=== PATIENT | female | born 1995 | race Caucasian/White ===

== ENCOUNTER 2016-06-23 02:56 | Emergency (ER) | payer OTHER ==
[~2016-06-23] VITALS: Ht 167.6 cm; Wt 70.0 kg
[~2016-06-23 02:56] MED LIST: ZOFR4TAB3 SL
[2016-06-23 02:58] VITALS: BP 130/71; PULSE 103; RESP 16; TEMP 98.7; O2SAT 95
== END 2016-06-23 03:37 | disposition left against medical advice (07) ==
LOC: NED 02:56
DX: S99.921A Unspecified injury of right foot, initial encounter (principal); X58.XXXA Exposure to other specified factors, initial encounter
CPT/HCPCS: 99281

== ENCOUNTER 2017-03-16 01:50 | Emergency (ER) | payer OTHER ==
[~2017-03-16] VITALS: Ht 162.6 cm; Wt 58.0 kg
[2017-03-16 01:57] VITALS: BP 116/68; PULSE 84; RESP 18; TEMP 98.6; O2SAT 100
--- NOTE | 2017-03-16 02:36 | PD ---
HPI Chief Complaint: Alcohol/Drug Intoxication Time Seen by Provider: 02:29 Travel History International Travel<30 days: No Contact w/Intl Traveler<30days: No Traveled to known affect area: No History of Present Illness HPI 21yo F with no PMH presents to the ED with alcohol intoxication. Pt is arousable and answers questions. Said she was at a democr[employer] and drank alcohol. Denies drugs. Moves all extremities and no signs of trauma. Denies any complaints. PFSH Past Medical History Medical History: Denies Significant Hx Hx Anticoagulant Therapy: No Cardiovascular Problems: No Chemotherapy: No Cerebrovascular Accident: No Diabetes: No Diminished Hearing: No Respiratory: No Immunizations Current: Yes Tetanus Vaccination: < 5 Years Influenza Vaccination: Yes ?: Unknown LMP: 02/14/17 Past Surgical History Hysterectomy: No Social History Alcohol Use: Yes (WEEKENDS) Tobacco Use: No Substance Use: No Allergies-Medications (Allergen,Severity, Reaction): Coded Allergies: acetaminophen (Unverified Adverse Reaction, Intermediate, vomiting, ) hydrocodone (Unverified Adverse Reaction, Intermediate, vomiting, 03/16/17 ) Reported Meds & Prescriptions Reported Meds & Active Scripts Active No Active Prescriptions or Reported Medications Review of Systems Except as stated in HPI: all other systems reviewed are Neg Physical Exam Narrative GENERAL: 21yo F intoxicated. SKIN: Focused skin assessment warm/dry. HEAD: Atraumatic. Normocephalic. EYES: Pupils equal and round at 5mm bilaterally. ENT: No nasal bleeding or discharge. Mucous membranes pink and moist. NECK: Trachea midline. No JVD. CARDIOVASCULAR: Regular rate and rhythm. No murmur appreciated. RESPIRATORY: No accessory muscle use. Clear to auscultation. Breath sounds equal bilaterally. GASTROINTESTINAL: Abdomen soft, non-tender, nondistended. BACK: No midline ttp. MUSCULOSKELETAL: No obvious deformities. No clubbing. No cyanosis. No edema. NEUROLOGICAL: Intoxicated but answers questions and follows commands. Data Data Last Documented VS Vital Signs Date Time Temp Pulse Resp B/P (MAP) Pulse Ox O2 Delivery O2 Flow Rate FiO2 03/16/17 05:11 03/16/17 03:33 73 16 100 Room Air 03/16/17 01:57 98.6 Orders Orders Complete Blood Count With Diff (03/16/17 02:33) Basic Metabolic Panel (Bmp) (03/16/17 02:33) Alcohol (Ethanol) (03/16/17 02:33) Sodium Chlor 0.9% 1000 Ml Inj (Ns 1000 M (03/16/17 02:45) Ed Discharge Order (03/16/17 05:05) Labs Laboratory Tests Test 03/16/17 02:58 White Blood Count 8.1 TH/MM3 Red Blood Count 4.35 MIL/MM3 Hemoglobin 12.7 GM/DL Hematocrit 38.8 % Mean Corpuscular Volume 89.2 FL Mean Corpuscular Hemoglobin 29.2 PG Mean Corpuscular Hemoglobin Concent 32.8 % Red Cell Distribution Width 13.7 % Platelet Count 216 TH/MM3 Mean Platelet Volume 9.3 FL Neutrophils (%) (Auto) 87.4 % Lymphocytes (%) (Auto) 7.3 % Monocytes (%) (Auto) 4.6 % Eosinophils (%) (Auto) 0.1 % Basophils (%) (Auto) 0.6 % Neutrophils # (Auto) 7.1 TH/MM3 Lymphocytes # (Auto) 0.6 TH/MM3 Monocytes # (Auto) 0.4 TH/MM3 Eosinophils # (Auto) 0.0 TH/MM3 Basophils # (Auto) 0.0 TH/MM3 CBC Comment DIFF FINAL Differential Comment Blood Urea Nitrogen 6 MG/DL Creatinine 0.56 MG/DL Random Glucose 106 MG/DL Calcium Level 7.7 MG/DL Sodium Level 143 MEQ/L Potassium Level 3.4 MEQ/L Chloride Level 112 MEQ/L Carbon Dioxide Level 22.0 MEQ/L Anion Gap 9 MEQ/L Estimat Glomerular Filtration Rate 137 ML/MIN Ethyl Alcohol Level 172 MG/DL [facility] Medical Decision Making Medical Screen Exam Complete: Yes Emergency Medical Condition: Yes Differential Diagnosis Alcohol intoxication Narrative Course 21yo F with alcohol intoxication. Labs reviewed, no leukocytosis. Blood alcohol 172. VS stable. Pt given NS IVF. Pt has been observed in the ED and is now sober, AAOx3. Pt's friend is here to pick her up. She admits to drinking a lot of alcohol. Normal mental status. Not nauseous. Return precautions given. Diagnosis Primary Impression: Alcohol intoxication Qualified Codes: F10.920 - Alcohol use, unspecified with intoxication, uncomplicated Patient Instructions: General Instructions Departure Forms: Tests/Procedures Additional Instructions: Please follow up with your primary care physician in 3-7 days. Return to the ED if symptoms worsen. Med/Other Pt SpecificInfo: No Change to Meds Scripts No Active Prescriptions or Reported Meds Disposition: 01 DISCHARGE HOME Condition: Stable Leydi Hinton DO Mar 16, 2017 02:36
[2017-03-16] MEDS ORDERED: SODIUM CHLOR 0.9% 1000 ML INJ 1,000 ML IV ONE (02:45)
[2017-03-16 03:32] LABS: AUTOMATED NEUTROPHIL # 7.1 TH/MM3 (1.8-7.7); BASOPHIL % 0.6 % (0.0-2.0); EOSINOPHIL % 0.1 % (0.0-4.0); HEMATOCRIT 38.8 % (35.0-46.0); HEMO FLAGS DIFF FINAL; LYMPH % 7.3 % (9.0-44.0); LYMPHOCYTE # 0.6 TH/MM3 (1.0-4.8); MEAN CELL VOLUME 89.2 FL (80.0-100.0); MEAN CORPUSCULAR HEMOGLOBIN 29.2 PG (27.0-34.0); MEAN CORPUSCULAR HGB CONC 32.8 % (32.0-36.0); MONO % 4.6 % (0.0-8.0); NEUT % 87.4 % (16.0-70.0); PLATELET COUNT 216 TH/MM3 (150-450); RED BLOOD COUNT 4.35 MIL/MM3 (4.00-5.30); RED CELL DISTRIBUTION WIDTH 13.7 % (11.6-17.2); WHITE BLOOD COUNT 8.1 TH/MM3 (4.0-11.0)
[2017-03-16 03:33] VITALS: BP 100/61; PULSE 73; RESP 16; O2SAT 100
[2017-03-16 03:44] LABS: POTASSIUM 3.4 MEQ/L (3.5-5.1)
== END 2017-03-16 05:18 | disposition home or self-care (01) ==
LOC: NEPE 01:50
DX: F10.920 Alcohol use, unspecified with intoxication, uncomplicated (principal)
CPT/HCPCS: 80048; 80307; 85025; 96360; 99284; J7030

== ENCOUNTER 2017-10-19 23:08 | Emergency (ER) | payer OTHER ==
[~2017-10-19] VITALS: Ht 157.5 cm; Wt 72.5 kg
[2017-10-19] MEDS ORDERED: NORE1TAB60 PO (23:24)
[2017-10-19 23:25] VITALS: BP 118/91; PULSE 82; RESP 16; TEMP 98.6; O2SAT 97
[2017-10-19] MEDS ORDERED: SODIUM CHLORIDE 0.9% FLUSH 10 ML FLUSH IVF PRN (23:45)
[2017-10-19 23:55] VITALS: BP 121/65; PULSE 98; RESP 16; O2SAT 98
[2017-10-20 00:04] LABS: AUTOMATED NEUTROPHIL # 6.6 TH/MM3 (1.8-7.7); BASOPHIL % 0.5 % (0.0-2.0); EOSINOPHIL # 0.1 TH/MM3 (0-0.4); EOSINOPHIL % 1.2 % (0.0-4.0); HEMATOCRIT 37.4 % (35.0-46.0); HEMOGLOBIN 12.6 GM/DL (11.6-15.3); LYMPH % 25.5 % (9.0-44.0); LYMPHOCYTE # 2.5 TH/MM3 (1.0-4.8); MEAN CELL VOLUME 87.7 FL (80.0-100.0); MEAN CORPUSCULAR HEMOGLOBIN 29.5 PG (27.0-34.0); MEAN CORPUSCULAR HGB CONC 33.7 % (32.0-36.0); MEAN PLATELET VOLUME 9.6 FL (7.0-11.0); MONOCYTE # 0.7 TH/MM3 (0-0.9); NEUT % 65.8 % (16.0-70.0); PLATELET COUNT 242 TH/MM3 (150-450); RED BLOOD COUNT 4.26 MIL/MM3 (4.00-5.30); RED CELL DISTRIBUTION WIDTH 13.5 % (11.6-17.2); WHITE BLOOD COUNT 9.9 TH/MM3 (4.0-11.0)
--- NOTE | 2017-10-20 00:04 | RADRPT ---
EXAM DATE/TIME: 10/19/2017 23:49 [facility] COMPARISON: CHEST PA & LAT, February 14, 2015, 11:57. INDICATIONS : Chest pain. MEDICAL HISTORY : None. SURGICAL HISTORY : None. ENCOUNTER: Initial ACUITY: 1 day PAIN SCORE: 2/10 LOCATION: Bilateral chest FINDINGS: A single view of the chest demonstrates the lungs to be symmetrically aerated without evidence of mas s, infiltrate or effusion. The cardiomediastinal contours are unremarkable. Osseous structures are intact. There are multiple overlying electrocardiogram leads. CONCLUSION: No acute disease. Nick Mirza MD on October 20, 2017 at 0:02 Board Certified Radiologist. This report was verified electronically.
[2017-10-20 00:08] VITALS: RESP 16; O2SAT 97
[2017-10-20 00:11] LABS: CHLORIDE 108 MEQ/L (98-107); SODIUM (NA) 141 MEQ/L (136-145)
[2017-10-20 00:13] LABS: CALCIUM 8.7 MG/DL (8.5-10.1)
[2017-10-20 00:14] LABS: BICARBONATE 25.5 MEQ/L (21.0-32.0); BLOOD UREA NITROGEN 5 MG/DL (7-18); GLUCOSE,RANDOM 90 MG/DL (74-106); MAGNESIUM 2.5 MG/DL (1.5-2.5)
[2017-10-20 00:16] VITALS: BP_SYST 134; BP_SYST 142; BP_DIAS 75; BP_DIAS 82
[2017-10-20 00:17] LABS: GLOMERULAR FILTRATION RATE 125 ML/MIN (>89); INTERNATIONAL NORMALIZED RATIO 1.1 RATIO
[2017-10-20 00:22] LABS: TROPONIN I LESS THAN 0.02 NG/ML (0.02-0.05)
[2017-10-20 00:23] LABS: D-DIMER 0.21 MG/L FEU (0.00-0.50)
--- NOTE | 2017-10-20 00:37 | PD ---
HPI Chief Complaint: Chest Pain Time Seen by Provider: 23:42 Travel History International Travel<30 days: No Contact w/Intl Traveler<30days: No Traveled to known affect area: No History of Present Illness HPI 22-year-old female presents to the emergency department for complaint of midsternal chest pain; no prior history of similar pain. Onset just prior to arrival. No report of injury fever or chills. Patient does take control pills no tobacco use. Area is tender to palpation. PFSH Past Medical History Narrative Medical Negative past medical history left ankle occasional alcohol use no tobacco use; nursing notes reviewed Medical History: Denies Significant Hx Hx Anticoagulant Therapy: No Cardiovascular Problems: No Chemotherapy: No Cerebrovascular Accident: No Diabetes: No Diminished Hearing: No Respiratory: No Immunizations Current: Yes Tetanus Vaccination: < 5 Years Influenza Vaccination: Yes ?: Not LMP: NOW Past Surgical History Hysterectomy: No Social History Alcohol Use: Yes (WEEKENDS) Tobacco Use: No Substance Use: No Allergies-Medications (Allergen,Severity, Reaction): Coded Allergies: acetaminophen (Verified Adverse Reaction, Intermediate, vomiting, 10/19/17) hydrocodone (Verified Adverse Reaction, Intermediate, vomiting, 10/19/17) Reported Meds & Prescriptions Reported Meds & Active Scripts Active Reported Loestrin 1/20 (Norethindrone-Ethinyl Estradiol) 1-20 Mg-Mcg Tab 1 Tab PO DAILY Review of Systems Except as stated in HPI: all other systems reviewed are Neg Physical Exam Narrative GENERAL: Well-developed well-nourished female no acute distress no respiratory distress SKIN: Warm and dry. HEAD: Normocephalic. EYES: No scleral icterus. No injection or drainage. NECK: Supple, trachea midline. No JVD or lymphadenopathy. CARDIOVASCULAR: Regular rate and rhythm without murmurs, gallops, or rubs. Chest wall tender to palpation and reproduces pain on presentation. RESPIRATORY: Breath sounds equal bilaterally. No accessory muscle use. GASTROINTESTINAL: Abdomen soft, non-tender, nondistended. MUSCULOSKELETAL: No cyanosis, or edema. BACK: Nontender without obvious deformity. No CVA tenderness. Data Data Last Documented VS Vital Signs Date Time Temp Pulse Resp B/P (MAP) Pulse Ox O2 Delivery O2 Flow Rate FiO2 10/20/17 01:48 16 10/20/17 01:19 73 127/68 (87) 98 Room Air 10/19/17 23:25 98.6 Orders Orders Electrocardiogram (10/19/17 23:42) Basic Metabolic Panel (Bmp) (10/19/17 23:42) Ckmb (Isoenzyme) Profile (10/19/17 23:42) Complete Blood Count With Diff (10/19/17 23:42) D-Dimer (10/19/17 23:42) Magnesium (Mg) (10/19/17 23:42) Prothrombin Time / Inr (Pt) (10/19/17 23:42) Act Partial Throm Time (Ptt) (10/19/17 23:42) Troponin I (10/19/17 23:42) Chest, Single Ap (10/19/17 23:42) Ecg Monitoring (10/19/17 23:42) Bilateral Bp Monitoring (10/19/17 23:42) Iv Access Insert/Monitor (10/19/17 23:42) Oximetry (10/19/17 23:42) Oxygen Administration (10/19/17 23:42) Sodium Chloride 0.9% Flush (Ns Flush) (10/19/17 23:45) Ed Urine Pregnancytest Poc (10/19/17 23:42) Ketorolac Inj (Toradol Inj) (10/20/17 00:45) Ondansetron Inj (Zofran Inj) (10/20/17 00:45) Labs Laboratory Tests Test 10/19/17 23:50 White Blood Count 9.9 TH/MM3 Red Blood Count 4.26 MIL/MM3 Hemoglobin 12.6 GM/DL Hematocrit 37.4 % Mean Corpuscular Volume 87.7 FL Mean Corpuscular Hemoglobin 29.5 PG Mean Corpuscular Hemoglobin Concent 33.7 % Red Cell Distribution Width 13.5 % Platelet Count 242 TH/MM3 Mean Platelet Volume 9.6 FL Neutrophils (%) (Auto) 65.8 % Lymphocytes (%) (Auto) 25.5 % Monocytes (%) (Auto) 7.0 % Eosinophils (%) (Auto) 1.2 % Basophils (%) (Auto) 0.5 % Neutrophils # (Auto) 6.6 TH/MM3 Lymphocytes # (Auto) 2.5 TH/MM3 Monocytes # (Auto) 0.7 TH/MM3 Eosinophils # (Auto) 0.1 TH/MM3 Basophils # (Auto) 0.0 TH/MM3 CBC Comment DIFF FINAL Differential Comment Prothrombin Time 11.0 SEC Prothromb Time International Ratio 1.1 RATIO Activated Partial Thromboplast Time 22.6 SEC D-Dimer Quantitative (PE/DVT) 0.21 MG/L FEU Blood Urea Nitrogen 5 MG/DL Creatinine 0.60 MG/DL Random Glucose 90 MG/DL Calcium Level 8.7 MG/DL Magnesium Level 2.5 MG/DL Sodium Level 141 MEQ/L Potassium Level 3.4 MEQ/L Chloride Level 108 MEQ/L Carbon Dioxide Level 25.5 MEQ/L Anion Gap 8 MEQ/L Estimat Glomerular Filtration Rate 125 ML/MIN Total Creatine Kinase 68 U/L Troponin I LESS THAN 0.02 NG/ML MDM Medical Decision Making Medical Screen Exam Complete: Yes Emergency Medical Condition: Yes Medical Record Reviewed: Yes Interpretation(s) POChcg: negative Troponin I: Less than 0.02, not elevated D-dimer: 0.21, not elevated Last Impressions Chest X-Ray 10/19/17 9112 Signed Impressions: Service Date/Time: Thursday, October 19, 2017 23:49 - CONCLUSION: No acute disease. Nick Mirza MD CBC & BMP Diagram 10/19/17 23:50 Calcium Level 8.7, Magnesium Level 2.5 Vital Signs Date Time Temp Pulse Resp B/P (MAP) Pulse Ox O2 Delivery O2 Flow Rate FiO2 10/20/17 00:16 142/75 (97) 134/82 (99) 10/20/17 00:08 16 97 Room Air 10/20/17 00:08 97 Room Air 10/19/17 23:55 98 16 121/65 (83) 98 Room Air 10/19/17 23:28 Room Air 10/19/17 23:25 98.6 82 16 118/91 (100) 97 Differential Diagnosis Chest pain atypical chest pain musculoskeletal pain pleurisy costochondritis PE pneumothorax pneumonia Narrative Course Patient placed on cardiac rehabilitation program director IV access obtained specimens collected and sent for result; EKG performed normal sinus rhythm rate [address] elevation injury pattern or ectopy noted IV access obtained [id number] hCG negative lab values are resulted and found to be in normal range except for mild hypokalemia of 3.4 cardiac enzymes are not elevated D-dimer is not elevated Chest x-ray reveals no acute abnormality Patient given Toradol 30 mg IV for pain At 1:55 AM patient is pain-free and stable for outpatient Diagnosis Primary Impression: Chest wall pain Referrals: Primary Care Physician call for appointment Patient Instructions: General Instructions Additional Instructions: Increase fluid hydration Take medication as prescribed as needed for pain greater than 5/10 intensity Follow-up with your primary care provider Return to the emergency department for any concerns or change in condition Med/Other Pt SpecificInfo: Prescription(s) given Scripts Ibuprofen (Ibuprofen) 600 Mg Tab 600 MG PO Q6H Y for Pain/Inflammation, #10 TAB 0 Refills Prov: Betty Skinner MD 10/20/17 Disposition: 01 DISCHARGE HOME Condition: Stable Betty Skinner MD October 20, 2017 00:37
[2017-10-20] MEDS ORDERED: ONDANSETRON HCL 4 MG/2 ML VIAL IV PUSH ONE (00:45)
[2017-10-20] MEDS ORDERED: KETOROLAC TROMETHAMINE 30 MG/ML (IVP) VIAL IV PUSH ONE (00:45)
[2017-10-20 01:19] VITALS: BP 127/68; PULSE 73; RESP 16; O2SAT 98
[2017-10-20 01:48] VITALS: RESP 16
[2017-10-20] MEDS ORDERED: IBUP-232 PO (01:52)
--- NOTE | 2017-10-20 08:02 | EKG ---
Date Performed: 10/19/2017 Time Performed: 23:15:13 PTAGE: 22 years EKG: Sinus rhythm NORMAL ECG NO PREVIOUS TRACING DOCTOR: Mannie Powell Interpretating Date/Time 10/20/2017 08:01:09
== END 2017-10-20 02:07 | disposition home or self-care (01) ==
LOC: PHED 23:08
DX: R07.89 Other chest pain (principal)
CPT/HCPCS: 71045; 80048; 82550; 83735; 84484; 84703; 85025; 85379; 85610; 85730; 93005; 96374; 96375; 99285; J1885; J2405